=== PATIENT | female | born 1970 | race Two or more races ===

== ENCOUNTER 2019-11-30 05:57 | Day surgery (SDC) | payer OTHER ==
[~2019-11-30 05:57] MED LIST: MOTRIN800 MG PO; OSEL75CA PO; TUSSI PRES-B L120 M1 PO
== END 2019-11-30 13:15 | disposition home or self-care (01) ==
LOC: CIR.AMB 05:57
PROVIDERS: ATTEND Obstetrics & Gynecology
DX: N84.0 Polyp of corpus uteri (principal)

== ENCOUNTER 2020-10-12 22:58 | Emergency (ER) | payer OTHER ==
[~2020-10-12] VITALS: Ht 160 cm; Wt 59.0 kg
[2020-10-12] MEDS ORDERED: DICY20TA (23:07)
[2020-10-12] MEDS ORDERED: PROTONIX40 MG (23:08)
[2020-10-13] MEDS ORDERED: ONDANSETRON HCL4 MG PO (05:38)
[2020-10-13] MEDS ORDERED: CARAFATE1 GM PO (05:38)
[2020-10-13] MEDS ORDERED: PROTONIX20 MG PO (05:38)
== END 2020-10-13 05:46 | disposition home or self-care (01) ==
LOC: ER 22:58
DX: K29.70 Gastritis, unspecified, without bleeding (principal); R10.13 Epigastric pain

== ENCOUNTER 2024-08-03 08:30 | Emergency (ER) | payer OTHER ==
[~2024-08-03] VITALS: Ht 160 cm; Wt 54.4 kg
[~2024-08-03 08:30] MED LIST changes: +CARAFATE1 GM PO; +DICY20TA; +ONDANSETRON HCL4 MG PO; +PROTONIX20 MG PO; +PROTONIX40 MG
[2024-08-03] MEDS ORDERED: LEVSIN/SL0.125 MG SL (09:07)
[2024-08-03 09:08] VITALS: BP 122/79; O2SAT 100
[2024-08-03] MEDS ORDERED: FAMOtidine 10 MG/ML (4ML VIAL) IV STA (09:49)
[2024-08-03] MEDS ORDERED: METOCLOPRAMIDE HCL 5 MG/ML VIAL ONE (09:56)
[2024-08-03] MEDS ORDERED: FAMOTIDINE/PF 20 MG/2 ML VIAL ONE (09:56)
[2024-08-03] MEDS ORDERED: METOCLOPRAMIDE HCL 10 MG in DEXTROSE 5 % IN WATER 50 ML IV ONE (10:00)
[2024-08-03 10:20] LABS: HEMATOCRIT 42.4 % (36.0-45.00); MEAN CELL VOLUME 92.5 fL (80.00-100.00); MEAN CORPUSCULAR HEMOGLOBIN 30.6 pg (27.00-32.0); MEAN CORPUSCULAR HGB CONC 33.1 g/dl (32.0-36.0); PLATELET COUNT 263 K/uL (150-450); RED BLOOD COUNT 4.58 M/uL (4.00-6.00); RED CELL DISTRIBUTION WIDTH 13.9 % (11.5-14.5)
[2024-08-03 10:52] LABS: ALBUMIN 3.9 gm/dL (3.4-5.0); BILIRUBIN TOTAL 0.58 mg/dL (0.3-1.2); BILIRUBIN,CONJUGATED 0.14 mg/dL (0.0-0.2); BILIRUBIN,UNCONJUGATED 0.44 mg/dL (0.0-0.6); CALCIUM 10.4 mg/dL (8.5-10.1); CREATININE SERUM 0.75 mg/dL (0.55-1.02); GFR 79.93; POTASSIUM 4.23 mEq/L (3.5-5.1); TOTAL PROTEIN 8.2 gm/dL (6.4-8.2)
[2024-08-03 10:59] LABS: URINE APPEARANCE Clear; URINE BILIRRUBIN Negative (NEGATIVE); URINE BLOOD Negative; URINE COLOR Yellow; URINE GLUCOSE Negative (NEGATIVE); URINE KETONE Negative (NEGATIVE); URINE LEUKOCYTE Negative; URINE NITRATE Negative; URINE PROTEIN Negative (NEGATIVE); URINE UROBILINOGEN 0.2 E.U./dl
[2024-08-03 11:03] LABS: URINE BACTERIA 762.4 uL (0.0-1933); URINE EPITHELIAL CELLS 10.5 uL (0.0-38.8); URINE RBC 5.7 uL (0.0-20.8); URINE WBC 6.3 uL (0.0-23.2)
[2024-08-03 11:13] LABS: URINE CAST 0.14 uL (0.0-1.40)
== END 2024-08-03 13:23 | disposition home or self-care (01) ==
LOC: ER 08:33
PROVIDERS: General Practice
DX: K29.70 Gastritis, unspecified, without bleeding (principal); K57.30 Diverticulosis of large intestine without perforation or abscess without bleeding; N28.1 Cyst of kidney, acquired

== ENCOUNTER 2024-11-04 08:58 | Emergency (ER) | payer OTHER ==
[~2024-11-04] VITALS: Ht 162.6 cm; Wt 56.7 kg
[~2024-11-04 08:58] MED LIST changes: +LEVSIN/SL0.125 MG SL
[2024-11-04] MEDS ORDERED: KETOROLAC TROMETHAMINE 30 MG VIAL IM STA (09:49)
== END 2024-11-04 10:03 | disposition home or self-care (01) ==
LOC: ER 08:59
DX: B02.9 Zoster without complications (principal)